=== PATIENT | female | born 1975 | race Caucasian/White ===

== ENCOUNTER 2024-04-13 11:23 | Outpatient (CLI) | payer OTHER, SELFPAY ==
--- NOTE | ~2024-04-13 | MM_ITS ---
EXAMINATION: MM screening lety BI w otilia HISTORY: Screening TECHNIQUE: Craniocaudal and mediolateral oblique 3-D tomosynthesis images were obtained and synthetic 2-D images were generated. CAD analysis was submitted and interpreted. COMPARISON: No prior mammogram is available for comparison at this institution. BREAST PARENCHYMAL COMPOSITION: Dense: The breasts are heterogeneously dense, which may obscure small masses FINDINGS: There are scattered bilateral breast asymmetries. There are no suspicious calcifications or architectural distortion. IMPRESSION: 1. Scattered bilateral breast asymmetries. 2. Recommend comparison to previous outside mammograms to assess stability. BI-RADS Category 0: Incomplete: Needs additional imaging evaluation. Reviewed, dictated and finalized at location B. [employer]
== END 2024-04-13 11:24 | disposition home or self-care (01) ==
LOC: MICIMG 11:26
PROVIDERS: PCP Nurse Practitioner Family; Visit Provider Nurse Practitioner Family
DX: Z12.31 Encounter for screening mammogram for malignant neoplasm of breast (principal); R92.8 Other abnormal and inconclusive findings on diagnostic imaging of breast
CPT/HCPCS: 77063; 77067

== ENCOUNTER 2024-05-20 08:16 | Outpatient (CLI) | payer OTHER, SELFPAY ==
--- NOTE | ~2024-05-20 | MMUS_ITS ---
EXAMINATION: MM diagnostic lety BI w otilia, US breast BI limited HISTORY: 48-year-old woman with a personal history of excisional biopsy in the right breast in 2005 a nd percutaneous biopsy of the left breast 2014. Both biopsies yielded benign results (by report). Of note, the patient's fibroglandular pattern is quite dense and complex, rendering full evaluation of the morphology (despite 3-D technology) challenging, for which the addition of ultrasound will als o be performed in order to confirm a baseline. TECHNIQUE: Additional 3-D spot compression tomosynthesis images of bilateral breasts were performed a nd synthetic 2-D images were generated. CAD analysis was submitted and interpreted. True lateral view s were also performed. High resolution limited bilateral breast ultrasound was performed. COMPARISON: Reference is made to a bilateral breast ultrasound performed 12/31/2004 and outside mammog [facility] dated 10/15/2022. Examination is compared with most recent screening mammography/tomography dated 04/13/2024. BREAST PARENCHYMAL COMPOSITION:Dense: The breasts are heterogeneously dense, which may obscure small masses. FINDINGS: MAMMOGRAPHIC FINDINGS: Multiple spot compression views of the right breast demonstrate a subtle breast asymmetry within the upper outer right breast, similar in morphology to the 10/15/2022 and 04/13/2024 examination for which focused ultrasound will be performed to confirm its benignity. Multiple spot compression views of the left breast demonstrate a subtle subcentimeter breast asymmetr y within the upper inner quadrant, similar in morphology to prior studies for which focused ultrasoun d will be performed to confirm its benignity (likely an intramammary lymph node). Punctate and bulky calcifications are detected bilaterally (left greater than right), stable and ladarius gn in appearance. Otherwise unremarkable and stable parenchymal pattern without suspicious microcalcifications or archi tectural distortion. ULTRASOUND: Sonographic evaluation of the upper outer right and upper inner left breasts were performed. At the 10:00 position of the right breast approximately 6 cm from the nipple is a well-circumscribed anechoic avascular focus with increased through transmission measuring 4.3 x 2.3 x 3 mm consistent wi th a simple cyst for which no further follow-up is needed. At the 10:00 position of the left breast approximately 6 cm from the nipple is a well-circumscribed r eniform shaped focus of decreased echogenicity measuring 4.6 x 2.3 x 3.8 mm, consistent with an intra mammary lymph node for which no further follow-up is needed. Sonographic evaluation of the remainder of the upper outer right and the upper inner left breast demo nstrates benign fibroglandular elements without a cystic or solid lesion of concern. IMPRESSION: No mammographic/tomographic or sonographic evidence to suggest the presence of malignancy. Resumption of yearly mammography is recommended. BI-RADS Category 2: Benign finding(s). Reviewed, dictated and finalized at location A. IMPRESSION: No mammographic/tomographic or sonographic evidence to suggest the presence of malignancy. Resumption of yearly mammography is recommended. BI-RADS Category 2: Benign finding(s).
== END 2024-05-20 08:17 | disposition home or self-care (01) ==
LOC: MICIMG 08:17
PROVIDERS: PCP Nurse Practitioner Family; Visit Provider Nurse Practitioner Family
DX: R92.8 Other abnormal and inconclusive findings on diagnostic imaging of breast (principal)
CPT/HCPCS: 76642; 77062; 77066; G0279